=== PATIENT | male | born 1985 | race Caucasian/White ===

== ENCOUNTER 2019-01-12 17:43 | Emergency (ER) | payer OTHER, BC, SELFPAY ==
[2019-01-12 17:45] VITALS: BP 137/93; PULSE 78; RESP 16; TEMP 36.4; O2SAT 98; BMI 29.9
[2019-01-12 18:00] VITALS: BP 144/95; PULSE 67; RESP 16; O2SAT 97
--- NOTE | 2019-01-12 18:07 | ED.VISSUMM ---
- ER Visit Summary Date of Service: 01/12/19 Chief Complaint: Right hand injury at work History of Present Illness: The patient is a 33 M [id number]. Prior right hand fractures a child. No prior surgery. Patient was at work today about an hour prior to arrival. And boxes fell on his hand. Complaining primarily pain on the ring and small metacarpal. Denies other injuries. Denies wrist, elbow or shoulder pain. Physical Examination: Well-appearing young male. Vital signs are stable afebrile. HEENT exam unremarkable. Neck nontender. Lungs auscultation bilaterally. Heart regular rate and rhythm no murmur. Chest wall nontender. Abdomen soft nontender. Patient moving all 4 extremities. Neurovascular intact. Specifically right shoulder, elbow and wrist are nontender normal range of motion no swelling no deformity. Strong radial pulse. Right hand pain on palpation of the right small and ring finger metacarpals on the dorsum. No lacerations. No bruising or swelling. He is able to do flexion extension all digits right hand. Normal cap refill touch sensation. Normal range of motion. No gross bony deformities. Skin intact. Back normal nontender. Neurologically is awake and alert with no focal motor deficits. Test Results: Right hand x-ray 3 views shows fracture or dislocation read by myself. Emergency Department Course and Treatment: Patient took aspirin prior to arrival for pain. Did not want anything else. Corporate care present in the room at this time. Repeat exam doing well and 1849. Treatment Plan: Ice elevate. Motrin for pain. Follow-up if not improving. Disposition: Discharge Impression: Acute right hand contusion Worker's Comp. injury This note was generated with [employer] dictation software. It may contain incorrect words, spelling, and punctuation that were not noted in review of the chart prior to signing ED Disposition - Plan for ED Patient: Referrals: Care Physician,No Primary [Primary Care Provider] -
--- NOTE | 2019-01-12 18:10 | ED.DCSUM_ITS ---
- ER Visit Summary Date of Service: 01/12/19 Chief Complaint: Right hand injury at work History of Present Illness: The patient is a 33 M [id number]. Prior right hand fractures a child. No prior surgery. Patient was at work today about an hour prior to arrival. And boxes fell on his hand. Complaining primarily pain on the ring and small metacarpal. Denies other injuries. Denies wrist, elbow or shoulder pain. Physical Examination: Well-appearing young male. Vital signs are stable afebrile. HEENT exam unremarkable. Neck nontender. Lungs auscultation bilaterally. Heart regular rate and rhythm no murmur. Chest wall nontender. Abdomen soft nontender. Patient moving all 4 extremities. Neurovascular intact. Specifically right shoulder, elbow and wrist are nontender normal range of motion no swelling no deformity. Strong radial pulse. Right hand pain on palpation of the right small and ring finger metacarpals on the dorsum. No lacerations. No bruising or swelling. He is able to do flexion extension all digits right hand. Normal cap refill touch sensation. Normal range of motion. No gross bony deformities. Skin intact. Back normal nontender. Neurologically is awake and alert with no focal motor deficits. Test Results: Right hand x-ray 3 views shows fracture or dislocation read by myself. Emergency Department Course and Treatment: Patient took aspirin prior to arrival for pain. Did not want anything else. Corporate care present in the room at this time. Repeat exam doing well and 1849. Treatment Plan: Ice elevate. Motrin for pain. Follow-up if not improving. Disposition: Discharge Impression: Acute right hand contusion Worker's Comp. injury This note was generated with [employer] dictation software. It may contain incorrect words, spelling, and punctuation that were not noted in review of the chart prior to signing ED Disposition - Plan for ED Patient: Referrals: Care Physician,No Primary [Primary Care Provider] -
--- NOTE | 2019-01-12 18:24 | RAD_ITS ---
STUDY: X-RAY - RIGHT HAND REASON FOR EXAM: Male, 33 years old. Injury. TECHNIQUE: 3 view(s) of the hand. COMPARISON: None. FINDINGS: Normal radiocarpal articulation. Normal distal radioulnar joint. Normal visualized carpal bones. Normal carpal articulations Normal carpometacarpal articulation of the thumb. Normal second through fifth carpometacarpal joints. Normal metacarpi. Normal metacarpophalangeal joint of the thumb. Normal interphalangeal joint of the thumb. Normal proximal and distal phalanges of the thumb. Normal metacarpophalangeal joints of the second through fifth fingers. Normal proximal and distal interphalangeal joints of the second through fifth fingers. Normal phalanges of the second through fifth fingers. The soft tissue structures are unremarkable. RAD/Hand Min 3 Views IMPRESSION: Normal x-ray examination of the hand. Electronically Signed: Jose L Ríos MD at 18:54 EDT , Service support ,
--- NOTE | 2019-01-12 18:50 | ED.DEP ---
ED Disposition - Plan for ED Patient: Disposition: Home or Assisted Living Instructions: ED Contusion Upper Ext Referrals: Corporate,Care [GROUP OF PHYSICIANS] - As Needed Additional Instructions: Ice and elevate right hand. To decrease pain and swelling. Motrin and Tylenol for pain. Follow-up if not improving.
[2019-01-12 19:01] VITALS: BP 150/97; PULSE 70; RESP 16; O2SAT 98
== END 2019-01-12 19:02 | disposition home or self-care (01) ==
PROVIDERS: Emergency Provider Emergency Medicine
DX: S60.221A Contusion of right hand, initial encounter (principal); W22.8XXA Striking against or struck by other objects, initial encounter; Y93.9 Activity, unspecified; Y92.9 Unspecified place or not applicable
CPT/HCPCS: 73130; 99282